=== PATIENT | female | born 1960 | race American Indian/Alaskan Native ===

== ENCOUNTER 2017-08-02 14:27 | Emergency (ER) | payer BC ==
[2017-08-02 14:46] VITALS: BP 153/89; PULSE 58; RESP 18; TEMP 97.8; O2SAT 100
--- NOTE | 2017-08-02 15:01 | ED PDOC ---
Arrival/HPI - General Chief Complaint: Lower Extremity Problem/Injury Time Seen by Provider: 08/02/17 14:40 Historian: Patient, Family - History of Present Illness Narrative History of Present Illness (Text): you were treated in the ED today for 4 days of right lower leg aching and a bruise to the right side of leg but otherwise without any trauma/injury/nausea/ vomiting/headache/dizziness/difficulty breathing/chest pain/abdomen pain/ numbness/tingling/loss of limb function/pain with urination/travel/prior blood clots/prior cancer history/prior hormone navid. Time/Duration: Other (4 days) Symptom Onset: Gradual Symptom Course: Unchanged Quality: Aching Severity Level: 2 Activities at Onset: Rest Context: Sitting Past Medical History - Provider Review Nursing Documentation Reviewed: Yes - Travel History Have you recently traveled outside [place] w/in the past 3 mons?: No - Infectious Disease Hx of Infectious Diseases: None - Reproductive Menopause: Yes (2-3 years ago) - Psychiatric Hx Substance Use: No - Anesthesia Hx Anesthesia: No Family/Social History - Physician Review Nursing Documentation Reviewed: Yes Family/Social History: No Known Family HX Smoking Status: Light Smoker < 10 Cigarettes Daily Hx Alcohol Use: Yes Frequency of alcohol use: Socially Hx Substance Use: No Allergies/Home Meds Allergies/Adverse Reactions: Allergies No Known Allergies Allergy (Verified 08/02/17 14:38) Home Medications: Home Meds Medication Instructions Recorded Confirmed No Known Home Med 08/02/17 08/02/17 Review of Systems - Review of Systems Constitutional: Normal Eyes: Normal ENT: Normal Respiratory: Normal Cardiovascular: Normal Gastrointestinal: Normal Genitourinary Female: Normal Musculoskeletal: Arthralgias Skin: Other (rle bruise) Neurological: Normal Endocrine: Normal Hemo/Lymphatic: Normal Psychiatric: Normal Physical Exam Vital Signs Reviewed: Yes Vital Signs Temp Pulse Resp BP Pulse Ox 08/02/17 14:42 97.8 F 58 L 18 153/89 H 100 Temperature: Afebrile Blood Pressure: Hypertensive Pulse: Regular Respiratory Rate: Normal Appearance: Positive for: Well-Appearing, Non-Toxic, Comfortable Pain Distress: Mild Mental Status: Positive for: Alert and Oriented X 3 - Systems Exam Head: Present: Atraumatic, Normocephalic Pupils: Present: PERRL Extroacular Muscles: Present: EOMI Conjunctiva: Present: Normal Ears: Present: Normal Mouth: Present: Moist Mucous Membranes Pharnyx: Present: Normal Nose (External): Present: Atraumatic Nose (Internal): Present: Normal Inspection Neck: Present: Normal Range of Motion Respiratory/Chest: Present: Clear to Auscultation, Good Air Exchange Cardiovascular: Present: Regular Rate and Rhythm Abdomen: No: Tenderness, Distention, Normal Bowel Sounds, Peritoneal Signs, Rebound, Guarding, McBurney's Point Tender, Rovsing's Sign Present, Hernias, Feeding Tubes, Ostomy Tubes, Mass/Organomegaly, Scars, Other Back: Present: Normal Inspection Upper Extremity: Present: Normal Inspection Lower Extremity: Present: CALF TENDERNESS, NORMAL PULSES, Normal ROM, Tenderness , Neurovascularly Intact, Capillary Refill < 2 s, Other (rle mild calf discomfort with bruise but no swelling vs left and otherwise no bony tenderness , and is warm/sensation/cap refill/dp pulses+) Skin: Present: Warm, Normal Color Psychiatric: Present: Alert, Oriented x 3, Normal Insight, Normal Concentration Medical Decision Making ED Course and Treatment: you were treated in the ED today for 4 days of right lower leg aching and a bruise to the right side of leg but otherwise without any trauma/injury/nausea/ vomiting/headache/dizziness/difficulty breathing/chest pain/abdomen pain/ numbness/tingling/loss of limb function/pain with urination/travel/prior blood clots/prior cancer history/prior hormone navid. You were otherwise breathing easily, pink moist lips, smiling talking with your son, good strength/sensation , alert/oriented, walking easily, clear lungs, no abdomen tenderness, right lower leg mild calf discomfort with bruise but no swelling vs left and otherwise no bony tenderness, and is warm/sensation/pink/pulses+; no fever temp 97.8, stable heart rate 58, stable breathing rate 18, excellent oxygen level 100 % room air, elevated blood pressure 153/89 which we recommend repeat in 2-3 days primary care office to determine further treatment, radiology right lower leg xray initial no sign of acute and ultrasound right lower leg no deep vein clot, tylenol and observation done in the ED with improvement, counselled to rest and thus discharged home with son. 1. Recommend tylenol or motrin as directed for pain. 2. Recommend follow-up primary care 1-2 days to review symptoms, get final xray right leg report and orthopedics referral. 3. If any worsening pain, fever, chills, nausea, vomiting, difficulty breathing, numbness , loss of limb function, pain with urination or any medical condition then return to the ED. 08/02/17 15:03 08/02/17 15:03 08/02/17 15:57 08/02/17 16:00 Reassessment Condition: Improved - RAD Interpretation Radiology Orders: 08/02/17 14:57 DUPLEX LOWER EXTRM VEIN RIGHT [US] Stat 08/02/17 14:59 TIBIA FIBULA RIGHT [RAD] Stat [employer]: Radiologist - Medication Orders Current Medication Orders: Discontinued Medications Acetaminophen (Tylenol 325mg Tab) 975 mg PO STAT STA Stop: 08/02/17 14:59 Last Admin: 08/02/17 15:31 Dose: 975 mg MAR Pain/Vitals Document 08/02/17 15:31 SRE (Rec: 08/02/17 15:31 SRE [id number]) Pain Reassessment Is This A Pain ReAssessment? Yes Sleep Is patient sleeping during reassessment? No Presence of Pain Presence of Pain Yes Pain Scale Used Pain Scale Used Numeric Location Left, Right or Bilateral Right Pain Location Body Site Calf Description Intermittent Disposition/Present on Arrival - Present on Arrival Any Indicators Present on Arrival: Yes History of DVT/PE: No History of Uncontrolled Diabetes: No Urinary Catheter: No History of Decub. Ulcer: No History Surgical Site Infection Following: None - Disposition Have Diagnosis and Disposition been Completed?: Yes Diagnosis: Strain of calf muscle Disposition: HOME/ ROUTINE Disposition Time: 15:59 Patient Plan: Discharge Patient Problems: Current Active Problems Problem Status Onset Strain of calf muscle Acute Condition: IMPROVED Additional Instructions: you were treated in the ED today for 4 days of right lower leg aching and a bruise to the right side of leg but otherwise without any trauma/injury/nausea/ vomiting/headache/dizziness/difficulty breathing/chest pain/abdomen pain/ numbness/tingling/loss of limb function/pain with urination/travel/prior blood clots/prior cancer history/prior hormone navid. You were otherwise breathing easily, pink moist lips, smiling talking with your son, good strength/sensation , alert/oriented, walking easily, clear lungs, no abdomen tenderness, right lower leg mild calf discomfort with bruise but no swelling vs left and otherwise no bony tenderness, and is warm/sensation/pink/pulses+; no fever temp 97.8, stable heart rate 58, stable breathing rate 18, excellent oxygen level 100 % room air, elevated blood pressure 153/89 which we recommend repeat in 2-3 days primary care office to determine further treatment, radiology right lower leg xray initial no sign of acute and ultrasound right lower leg no deep vein clot, tylenol and observation done in the ED with improvement, counselled to rest and thus discharged home with son. 1. Recommend tylenol or motrin as directed for pain. 2. Recommend follow-up primary care 1-2 days to review symptoms, get final xray right leg report and orthopedics referral. 3. If any worsening pain, fever, chills, nausea, vomiting, difficulty breathing, numbness , loss of limb function, pain with urination or any medical condition then return to the ED. Referrals: José Miguel Thurston MD [Primary Care Provider] - Follow up with primary Forms: [employer] (Faro[place])
--- NOTE | 2017-08-02 15:38 | US ---
PROCEDURE: Right lower extremity venous US HISTORY: Leg pain and swelling. Evaluate for DVT. PHYSICIAN(S): Kj Christensen M.D. TECHNIQUE: Duplex sonography and color-flow Doppler with graded compression were used to evaluate the deep venous system of the right lower extremity. FINDINGS: The visualized deep venous system of the right lower extremity is sonographically normal and compressible. Normal waveforms and augmentation are seen. There is no sonographic evidence for deep venous thrombosis in the visualized segments of the right lower extremity. IMPRESSION: 1. No sonographic evidence for deep venous thrombosis in the visualized segments of the right lower extremity.
--- NOTE | 2017-08-02 16:32 | RAD ---
PROCEDURE: Radiographs of the right tibia and fibula. HISTORY: 57yoF, right lower leg pain COMPARISON: None available. TECHNIQUE: Frontal and lateral views obtained. FINDINGS: BONES: No fracture or destructive lesion. JOINT SPACES: Unremarkable. OTHER FINDINGS: None. IMPRESSION: Unremarkable radiographs of the right tibia and fibula.
== END 2017-08-02 16:12 | disposition home or self-care (01) ==
LOC: ED 14:27
DX: S86.911A Strain of unspecified muscle(s) and tendon(s) at lower leg level, right leg, initial encounter (principal); X58.XXXA Exposure to other specified factors, initial encounter; Y92.9 Unspecified place or not applicable

== ENCOUNTER 2017-09-14 17:01 | Inpatient (IN) | payer BC ==
--- NOTE | 2017-09-14 17:48 | ED PDOC ---
Arrival/HPI - General Chief Complaint: Chest Pain Time Seen by Provider: 09/14/17 17:15 Historian: Patient - History of Present Illness Narrative History of Present Illness (Text): 09/14/17 17:48 A 57 year old female presents to the emergency department complaining of left chest pain since earlier today. Patient reports worsening pain with movement. She notes taking Tylenol, with mild relief. Patient denies any injury, fever, chills, nausea, vomiting, abdominal pain, shortness of breath, leg pain or any other complaints. No recent travel. Time/Duration: Other (earlier today) Symptom Course: Unchanged Quality: Other Context: Home Past Medical History - Provider Review Nursing Documentation Reviewed: Yes - Infectious Disease Hx of Infectious Diseases: None - Reproductive Menopause: Yes - Cardiac Hx Cardiac Disorders: No - Pulmonary Hx Respiratory Disorders: No - Neurological Hx Neurological Disorder: No - HEENT Hx HEENT Disorder: No - Renal Hx Renal Disorder: No - Endocrine/Metabolic Hx Endocrine Disorders: No - Hematological/Oncological Hx Blood Disorders: No - Integumentary Hx Dermatological Disorder: No - Musculoskeletal/Rheumatological Hx Musculoskeletal Disorders: No - Gastrointestinal Hx Gastrointestinal Disorders: No - Genitourinary/Gynecological Hx Genitourinary Disorders: No - Psychiatric Hx Psychophysiologic Disorder: No Hx Substance Use: No - Anesthesia Hx Anesthesia: No Family/Social History - Physician Review Nursing Documentation Reviewed: Yes Family/Social History: CAD/OH Smoking Status: Light Smoker < 10 Cigarettes Daily Hx Alcohol Use: Yes Frequency of alcohol use: Few days per week Hx Substance Use: No Allergies/Home Meds Allergies/Adverse Reactions: Allergies No Known Allergies Allergy (Verified 09/14/17 17:13) Review of Systems - Physician Review All systems were reviewed & negative as marked: Yes - Review of Systems Constitutional: absent: Fevers, Night Sweats Respiratory: absent: SOB Cardiovascular: Chest Pain (left sided). absent: Calf Pain Gastrointestinal: absent: Abdominal Pain, Nausea, Vomiting Physical Exam Vital Signs Reviewed: Yes Vital Signs Temp Pulse Pulse Resp BP BP Pulse Ox 09/15/17 00:50 74 18 135/81 99 09/14/17 23:24 76 18 146/87 97 09/14/17 17:22 87 178/93 H 09/14/17 17:07 98.6 F 90 18 170/96 H 100 Temperature: Afebrile Blood Pressure: Hypertensive Pulse: Regular Respiratory Rate: Normal Appearance: Positive for: Well-Appearing, Non-Toxic, Comfortable Pain Distress: None Mental Status: Positive for: Alert and Oriented X 3 - Systems Exam Head: Present: Atraumatic, Normocephalic Pupils: Present: PERRL Extroacular Muscles: Present: EOMI Conjunctiva: Present: Normal Mouth: Present: Moist Mucous Membranes Respiratory/Chest: Present: Clear to Auscultation, Good Air Exchange. No: Respiratory Distress, Accessory Muscle Use, Tender to Palpation Cardiovascular: Present: Regular Rate and Rhythm, Normal S1, S2. No: Murmurs Abdomen: Present: Normal Bowel Sounds. No: Tenderness, Distention, Peritoneal Signs Upper Extremity: Present: Normal Inspection. No: Cyanosis, Edema Lower Extremity: Present: Normal Inspection. No: Edema Neurological: Present: GCS=15, CN II-XII Intact, Speech Normal Skin: Present: Warm, Dry, Normal Color. No: Rashes Psychiatric: Present: Alert, Oriented x 3, Normal Insight, Normal Concentration Medical Decision Making ED Course and Treatment: 09/14/17 17:48 Impression: A 57 year old female with left chest pain Plan: -- Chest xray -- Labs -- Toradol -- Reassess and disposition Progress Notes: EKG shows NSR at [address]-segment elevations, normal intervals. Interpreted by me. pt shows hgb 6.8 so pt likely had chest pain due to symptomatic anemia pt consented for blood transfusion. explained risks/benefits. 09/14/17 21:45 Dr. Bertrand lam, awaiting call back. 09/14/17 21:[address] Thurston 09/14/17 22:35 Patient was informed of diagnosis and admission, patient agrees with plan. 09/18/17 22:53 - Lab Interpretations Lab Results: 09/14/17 21:00 09/14/17 18:30 Lab Results 09/14/17 21:00: Retic Count 1.14 09/14/17 21:00: WBC 6.4, RBC 3.93, Hgb 6.7 L*, Hct 26.1 L, MCV 66.4 L, MCH 17.0 L, MCHC 25.7 L, RDW 20.7 H, Plt Count 130, Gran % 50.7, Lymph % (Auto) 29.1, [place] % (Auto) 7.1 H, Eos % (Auto) 12.0 H, Baso % (Auto) 1.1, Gran # 3.22, Lymph # (Auto) 1.9, [place]lee # (Auto) 0.5, Eos # (Auto) 0.8 H, Baso # (Auto) 0.07 09/14/17 18:30: Hemoglobin A 97.3, Hemoglobin A2 1.7 L, Hemoglobin C 0.0, Hemoglobin F () <1.0, Hemoglobin S 0.0, Variant Hemoglobin 0.0, Hemoglobinopathy Red Blood Count 3.88, Hemoglobinopathy Hct 24.2 L, Hemoglobinopathy Hgb 7.1 L, Hemoglobinopathy MCV 62.5 L, Hemoglobinopathy MCH 18.2 L, Hemoglobinopathy RDW 22.9 H, Hemoglobinopathy Interp See note 09/14/17 18:30: Sodium 142, Potassium 3.9, Chloride 107, Carbon Dioxide 25, Anion Gap 14, BUN 15, Creatinine 0.9, Est GFR ( Amer) > 60, Est GFR (Non- Af Amer) > 60, Random Glucose 96, Calcium 10.3, Total Bilirubin 0.2, AST 21, ALT 20, Alkaline Phosphatase 103, Troponin I < 0.01, Total Protein 8.3, Albumin 4.3, Globulin 4.0, Albumin/Globulin Ratio 1.1 09/14/17 18:30: WBC 6.0, RBC 3.90, Hgb 6.9 L*, Hct 26.1 L, MCV 66.9 L, MCH 17.7 L, MCHC 26.4 L, RDW 20.9 H, Plt Count 117 L, Gran % 54.8, Lymph % (Auto) 26.4, [place]lee % (Auto) 5.5, Eos % (Auto) 12.1 H, Baso % (Auto) 1.2, Gran # 3.30, Lymph # (Auto) 1.6, [place]lee # (Auto) 0.3, Eos # (Auto) 0.7, Baso # (Auto) 0.07 I have reviewed the lab results: Yes - RAD Interpretation Radiology Orders: 09/14/17 18:08 CHEST TWO VIEWS (PA/LAT) [RAD] Stat - Medication Orders Current Medication Orders: Discontinued Medications Arformoterol Tartrate (Brovana) 15 mcg IH [id number] [facility] Last Admin: 09/16/17 07:27 Dose: 15 mcg Chlordiazepoxide (Librium) 25 mg PO Q8 PRN; Protocol PRN Reason: Symptoms of alcohol withdrawl Folic Acid (Folic Acid) 1 mg PO DAILY [facility] Last Admin: 09/16/17 10:27 Dose: 1 mg Dextrose/Sodium Chloride (Dextrose 5%/0.45% Ns 1000 Ml) 1,000 mls @ 60 mls/hr IV .[id number] [facility] Last Admin: 09/16/17 10:27 Dose: Iron Sucrose 200 mg/ Sodium (Chloride) 110 mls @ 110 mls/hr IVPB DAILY [facility] Stop: 09/19/17 10:59 Last Admin: 09/16/17 10:31 Dose: 110 mls/hr eMAR Start Stop Document 09/16/17 10:31 DH (Rec: 09/16/17 10:31 [id number]) Intravenous Solution Start Date 09/16/17 Start Time 10:31 End Date 09/16/17 End time 11:31 Total Infusion Time 60 Sodium Chloride (Sodium Chloride 0.9%) 1,000 mls @ 75 mls/hr IV .[id number] [facility] Stop: 09/16/17 10:31 Last Admin: 09/16/17 10:32 Dose: 75 mls/hr eMAR Start Stop Document 09/16/17 10:32 DH (Rec: 09/16/17 10:32 [id number]) Intravenous Solution Start Date 09/16/17 Start Time 10:32 Ketorolac Tromethamine (Toradol) 30 mg IV ONCE ONE Stop: 09/14/17 18:13 Last Admin: 09/14/17 18:36 Dose: 30 mg eMAR Start Stop Document 09/14/17 18:36 CHARLIE (Rec: 09/14/17 18:36 CHARLIE [id number]) Intravenous Solution Start Date 09/14/17 Start Time 18:36 End Date 09/14/17 End time 18:38 Total Infusion Time 2 MAR Pain Assessment Document 09/14/17 18:36 CHARLIE (Rec: 09/14/17 18:36 CHARLIE [id number]) Pain Reassessment Is this a pain reassessment? Yes Location Left, Right or Bilateral Left Pain Location Body Site Chest Description Intensity of Pain at present 4 Levalbuterol HCl (Xopenex) 0.63 mg IH [id number] PRN PRN Reason: SOB Last Admin: 09/16/17 07:27 Dose: 0.63 mg Losartan Potassium (Cozaar) 50 mg PO DAILY [facility] Last Admin: 09/15/17 09:10 Dose: 50 mg MAR Pulse and Blood Pressure Document 09/15/17 09:10 (Rec: 09/15/17 09:10 [place] [id number]) Pulse Pulse Rate (60-90) 70 Blood Pressure Blood Pressure (100/60-150/90) 159/90 Losartan Potassium (Cozaar) 100 mg PO DAILY [facility] Last Admin: 09/16/17 10:28 Dose: 100 mg Metoprolol Tartrate (Lopressor) 25 mg PO BID [facility] Last Admin: 09/16/17 10:28 Dose: 25 mg MAR Pulse and Blood Pressure Document 09/16/17 10:28 (Rec: 09/16/17 10:29 [place] [id number]) Pulse Pulse Rate (60-90) 71 Blood Pressure Blood Pressure (100/60-150/90) 156/82 Nicotine (Nicoderm Cq) 1 patch TD DAILY [facility] Last Admin: 09/16/17 10:29 Dose: 1 patch MAR Transdermal Patch Site Document 09/16/17 10:29 (Rec: 09/16/17 10:29 [place] [id number]) Transdermal Patch Site Transdermal Patch Site Right Lower Abdomen Pantoprazole Sodium (Protonix Inj) 40 mg IVP Q12 [facility] Last Admin: 09/16/17 10:29 Dose: 40 mg IVP Administration Document 09/16/17 10:29 (Rec: 09/16/17 10:29 [place] [id number]) Charges for Administration # of IVP Administrations 1 Potassium Chloride (K-Dur 20 Meq Er Tab) 20 meq PO BRK [facility] Stop: 09/19/17 08:01 Last Admin: 09/16/17 10:25 Dose: 20 meq Thiamine HCl (Vitamin B1 Inj) 100 mg IV DAILY [facility] Last Admin: 09/16/17 10:29 Dose: 100 mg eMAR Start Stop Document 09/16/17 10:29 (Rec: 09/16/17 10:29 [place] [id number]) Intravenous Solution Start Date 09/16/17 Start Time 10:29 - Scribe Statement The provider has reviewed the documentation as recorded by the Siddhartha Norman Provider Scribe Attestation: All medical record entries made by the Siddhartha were at my direction and personally dictated by me. I have reviewed the chart and agree that the record accurately reflects my personal performance of the history, physical exam, medical decision making, and the department course for this patient. I have also personally directed, reviewed, and agree with the discharge instructions and disposition. Disposition/Present on Arrival - Present on Arrival Any Indicators Present on Arrival: No History of DVT/PE: No History of Uncontrolled Diabetes: No Urinary Catheter: No History of Decub. Ulcer: No History Surgical Site Infection Following: None - Disposition Have Diagnosis and Disposition been Completed?: Yes Diagnosis: Anemia Disposition: HOSPITALIZED Disposition Time: 19:00 Patient Plan: Admission Condition: STABLE
[2017-09-14 20:08] LABS: BASO # 0.07 K/mm3 (0.0-2.0); BASO % 1.2 % (0.0-3.0); EOS # 0.7 (0.0-0.7); EOS % 12.1 % (1.5-5.0); GRAN % 54.8 % (50.0-68.0); LYMPH # 1.6 (1.2-3.4); LYMPH % 26.4 % (22.0-35.0); MEAN CELL VOLUME 66.9 fl (80.0-105.0); MEAN CORPUSCULAR HEMOGLOBIN 17.7 pg (25.0-35.0); MEAN CORPUSCULAR HGB CONC 26.4 g/dl (31.0-37.0); MONO # 0.3 (0.1-0.6); MONO % 5.5 % (1.0-6.0); RED CELL DISTRIBUTION WIDTH 20.9 % (11.5-14.5)
[2017-09-14 20:10] LABS: ALB/GLOB RATIO 1.1 (1.1-1.8); ALBUMIN 4.3 g/dL (3.0-4.8); ALT/SGPT 20 U/L (7-56); AST/SGOT 21 U/L (14-36); BLOOD UREA NITROGEN 15 mg/dL (7-21); CALCIUM 10.3 mg/dL (8.4-10.5); GFR AFRICAN-AMERICAN > 60; GFR NON-AFRICAN AMERICAN > 60
[2017-09-14 20:11] LABS: HEMOGLOBIN 6.9 g/dL (12.0-16.0)
[2017-09-14 20:21] LABS: TROPONIN I < 0.01 ng/mL
[2017-09-14 21:01] LABS: PLATELET COUNT 117 10^3/uL (120.0-450.0)
[2017-09-14 22:23] LABS: BASO % 1.1 % (0.0-3.0); EOS # 0.8 (0.0-0.7); GRAN # 3.22 (1.4-6.5); GRAN % 50.7 % (50.0-68.0); LYMPH # 1.9 (1.2-3.4); LYMPH % 29.1 % (22.0-35.0); MEAN CELL VOLUME 66.4 fl (80.0-105.0); MEAN CORPUSCULAR HGB CONC 25.7 g/dl (31.0-37.0); MONO # 0.5 (0.1-0.6); MONO % 7.1 % (1.0-6.0); PLATELET COUNT 130 10^3/uL (120.0-450.0); RBC 3.93 10^6/uL (3.5-6.1); RED CELL DISTRIBUTION WIDTH 20.7 % (11.5-14.5); WHITE BLOOD COUNT 6.4 10^3/ul (4.5-11.0)
[2017-09-14 22:24] LABS: BASO # 0.07 K/mm3 (0.0-2.0)
[2017-09-14 22:51] LABS: HEMOGLOBIN 6.7 g/dL (12.0-16.0)
--- NOTE | 2017-09-15 00:28 | CP.PCM.HP ---
<Kurtis Hay - Last Filed: 09/15/17 00:23> History of Present Illness - History of Present Illness History of Present Illness: Kurtis Satnam PGY1 H&P note for Dr. Thurston Service cc: chest tightness Ms. Mcgregor is a 57yo postmenopausal AAF with no significant PMH who presented for chest tightness x2 days. she denies shortness of breath, nausea/vomiting, diaphoresis. she states that the tightness feels like a muscle spasm to her and is not associated with exertion, and is constant, but non-radiating. she states that she has never been told she's anemic, and denies any vomiting or bloody/ dark stools. she does state that she used to have heavy periods but has not had one in years and denies any vaginal bleeding. she also states that she has had hemorrhoids in the past, but has not had active bleeding. she denies any shortness of breath, weakness, weight loss. she has never had a blood transfusion before. 12-pt ROS was reviewed and is otherwise unremarkable. PMD: Dr. Thurston PMH: hermorrhoids PSH: none Meds: none NKDA SHx: +tobacco (1pk/d for many years), occasional ETOH, denies drug use, works as a teacher Present on Admission - Present on Admission Any Indicators Present on Admission: No Review of Systems - Review of Systems All systems: reviewed and no additional remarkable complaints except (as per HPI ) Past Patient History - Infectious Disease Hx of Infectious Diseases: None - Past Medical History & Family History Past Medical History?: Yes Past Family History: Reviewed and not pertinent - Past Social History Smoking Status: Heavy Smoker > 10 Cigarettes Daily Alcohol: Occasional Drugs: Denies Home Situation {Lives}: With Family - CARDIAC Hx Cardiac Disorders: No - PULMONARY Hx Respiratory Disorders: No - NEUROLOGICAL Hx Neurological Disorder: No - HEENT Hx HEENT Problems: No - RENAL Hx Chronic Kidney Disease: No - ENDOCRINE/METABOLIC Hx Endocrine Disorders: No - HEMATOLOGICAL/ONCOLOGICAL Hx Blood Disorders: No - INTEGUMENTARY Hx Dermatological Problems: No - MUSCULOSKELETAL/RHEUMATOLOGICAL Hx Musculoskeletal Disorders: No - GASTROINTESTINAL Hx Hemorrhoids: Yes - GENITOURINARY/GYNECOLOGICAL Hx Genitourinary Disorders: No - PSYCHIATRIC Hx Psychophysiologic Disorder: No Hx Substance Use: No - SURGICAL HISTORY Hx Surgeries: No - ANESTHESIA Hx Anesthesia: No Meds Allergies/Adverse Reactions: Allergies Allergy/AdvReac Type Severity Reaction Status Date / Time No Known Allergies Allergy Verified 09/14/17 17:13 Physical Exam - Constitutional Appears: Well, Non-toxic, No Acute Distress - Head Exam Head Exam: ATRAUMATIC, NORMAL INSPECTION - Eye Exam Eye Exam: EOMI, PERRL Additional comments: pale conjunctiva - ENT Exam ENT Exam: Mucous Membranes Moist - Neck Exam Neck exam: Positive for: Normal Inspection - Respiratory Exam Respiratory Exam: NORMAL BREATHING PATTERN. absent: Rales, Rhonchi, Wheezes, Respiratory Distress - Cardiovascular Exam Cardiovascular Exam: RRR, +S1, +S2 - GI/Abdominal Exam GI & Abdominal Exam: Normal Bowel Sounds, Soft. absent: Distended, Tenderness - Extremities Exam Extremities exam: Positive for: normal inspection. Negative for: pedal edema - Back Exam Back exam: NORMAL INSPECTION - Neurological Exam Neurological exam: Alert, CN II-XII Intact, Oriented x3 - Psychiatric Exam Psychiatric exam: Normal Affect, Normal Mood - Skin Skin Exam: Normal Color, Warm Results - Vital Signs Recent Vital Signs: Last Vital Signs Temp 98.6 F 09/14/17 17:07 Pulse 76 09/14/17 23:24 Resp 18 09/14/17 23:24 BP 146/87 09/14/17 23:24 Pulse Ox 97 09/14/17 23:24 - Labs Result Diagrams: 09/14/17 21:00 09/14/17 18:30 Assessment & Plan - Assessment and Plan (Free Text) Assessment: 57yo postmenopausal AAF with no significant PMH who presented for chest tightness, found to have anemia w/ Hgb 6.9. She is being admitted for anemia to rule out acute causes and will receive blood transfusions. Plan: 1. chest pain, found to be w/ microcytic anemia - type and cross - transfuse 2u pRBC STAT - pending labwork before transfusion: Iron panel, TIBC, ferritin, retic count, vitamin B12, folate, mag/phos, pt/ptt, erythropoeitin, hgb electropharesis - stool occult blood test - trending trops to r/o ACS - GI consulted, recs appreciated - Cardio consulted, recs appreciated - Heme consulted, recs appreciated - CXR reviewed and is unremarkable - labs reviewed and are unremarkable except for the microcytic anemia - EKG was NSR w/ possible PAC's - monitor for any bleeding - monitor morning labs and H/H - Chest, abdomen, pelvis CT ordered - morning EKG ordered - Liquid diet - D5W @ 60 ordered 2. HTN - Lopressor and Cozaar ordered 3. Hx Tobacco use - nicotine patch ordered PTX and SCDs ordered for GI/DVT ppx Patient was seen and examined, and discussed with attending Dr. Bertrand Hay PGY1 <José Miguel Thurston U - Last Filed: 09/15/17 22:37> Results - Vital Signs Recent Vital Signs: Last Vital Signs Temp 98.1 F 09/15/17 18:00 Pulse 72 09/15/17 18:00 Resp 18 09/15/17 18:00 BP 156/105 H 09/15/17 18:00 Pulse Ox 100 09/15/17 06:00 - Labs Result Diagrams: 09/15/17 08:00 09/15/17 03:35 Labs: Laboratory Results - last 24 hr 09/14/17 09/14/17 09/14/17 23:58 23:58 23:58 WBC RBC Hgb Hct MCV MCH MCHC RDW Plt Count Manual Plt Count PT INR APTT Sodium Potassium Chloride Carbon Dioxide Anion Gap BUN Creatinine Est GFR ( Amer) Est GFR (Non-Af Amer) Random Glucose Calcium Phosphorus 4.0 Magnesium 2.2 Iron 19 L TIBC 462 % Saturation 4 L Transferrin 393.37 H Ferritin 5.5 Total Bilirubin Direct Bilirubin AST ALT Alkaline Phosphatase Lactate Dehydrogenase 389 Total Creatine Kinase 60 Troponin I < 0.01 Total Protein Albumin Globulin Albumin/Globulin Ratio Triglycerides Cholesterol LDL Cholesterol Direct HDL Cholesterol Vitamin B12 355 25-OH Vitamin D Total Folate 6.3 Free T4 Thyroxine (T4) TSH 3rd Generation Hepatitis A IgM Ab Hep Bs Antigen Hep B Core IgM Ab Hepatitis C Antibody Blood Type Blood Type Confirm Antibody Screen Crossmatch BBK History Checked 09/14/17 09/14/17 09/14/17 23:58 23:58 23:58 WBC RBC Hgb Hct MCV MCH MCHC RDW Plt Count Manual Plt Count PT INR APTT Sodium Potassium Chloride Carbon Dioxide Anion Gap BUN Creatinine Est GFR ( Amer) Est GFR (Non-Af Amer) Random Glucose Calcium Phosphorus Magnesium Iron TIBC % Saturation Transferrin Ferritin Total Bilirubin Direct Bilirubin AST ALT Alkaline Phosphatase Lactate Dehydrogenase Total Creatine Kinase Troponin I Total Protein Albumin Globulin Albumin/Globulin Ratio Triglycerides Cholesterol LDL Cholesterol Direct HDL Cholesterol Vitamin B12 25-OH Vitamin D Total < 12.8 L Folate Free T4 1.12 Thyroxine (T4) 6.9 TSH 3rd Generation 3.73 Hepatitis A IgM Ab Hep Bs Antigen Hep B Core IgM Ab Hepatitis C Antibody Blood Type O POSITIVE Blood Type Confirm Antibody Screen Negative Crossmatch See Detail BBK History Checked No verified bt 09/15/17 09/15/17 09/15/17 01:35 01:35 03:35 WBC RBC Hgb Hct MCV MCH MCHC RDW Plt Count Manual Plt Count PT 11.9 INR 1.04 APTT 25.4 Sodium 140 Potassium 3.6 Chloride 108 H Carbon Dioxide 24 Anion Gap 11 BUN 13 Creatinine 0.7 Est GFR ( Amer) > 60 Est GFR (Non-Af Amer) > 60 Random Glucose 117 H Calcium 9.3 Phosphorus Magnesium 2.2 Iron TIBC % Saturation Transferrin Ferritin Total Bilirubin 0.2 Direct Bilirubin 0.2 AST 26 ALT 23 Alkaline Phosphatase 76 Lactate Dehydrogenase 366 Total Creatine Kinase 61 Troponin I < 0.01 Total Protein 7.2 Albumin 3.8 Globulin 3.5 Albumin/Globulin Ratio 1.1 Triglycerides 141 Cholesterol 149 LDL Cholesterol Direct 101 HDL Cholesterol 32 Vitamin B12 25-OH Vitamin D Total Folate Free T4 Thyroxine (T4) TSH 3rd Generation Hepatitis A IgM Ab Hep Bs Antigen Hep B Core IgM Ab Hepatitis C Antibody Blood Type Blood Type Confirm O POSITIVE Antibody Screen Crossmatch BBK History Checked 09/15/17 09/15/17 09/15/17 08:00 08:45 08:45 WBC 5.4 RBC 4.11 Hgb 7.8 L Hct 28.6 L MCV 69.6 L D MCH 19.0 L MCHC 27.3 L RDW 22.3 H Plt Count 97 L Manual Plt Count PT 12.4 INR 1.08 APTT Sodium Potassium Chloride Carbon Dioxide Anion Gap BUN Creatinine Est GFR ( Amer) Est GFR (Non-Af Amer) Random Glucose Calcium Phosphorus Magnesium Iron TIBC % Saturation Transferrin Ferritin Total Bilirubin Direct Bilirubin AST ALT Alkaline Phosphatase Lactate Dehydrogenase 381 Total Creatine Kinase 79 Troponin I < 0.01 Total Protein Albumin Globulin Albumin/Globulin Ratio Triglycerides Cholesterol LDL Cholesterol Direct HDL Cholesterol Vitamin B12 25-OH Vitamin D Total Folate Free T4 Thyroxine (T4) TSH 3rd Generation Hepatitis A IgM Ab Hep Bs Antigen Hep B Core IgM Ab Hepatitis C Antibody Blood Type Blood Type Confirm Antibody Screen Crossmatch BBK History Checked 09/15/17 09/15/17 08:45 10:30 WBC RBC Hgb Hct MCV MCH MCHC RDW Plt Count Manual Plt Count 120 PT INR APTT Sodium Potassium Chloride Carbon Dioxide Anion Gap BUN Creatinine Est GFR ( Amer) Est GFR (Non-Af Amer) Random Glucose Calcium Phosphorus Magnesium Iron TIBC % Saturation Transferrin Ferritin Total Bilirubin Direct Bilirubin AST ALT Alkaline Phosphatase Lactate Dehydrogenase Total Creatine Kinase Troponin I Total Protein Albumin Globulin Albumin/Globulin Ratio Triglycerides Cholesterol LDL Cholesterol Direct HDL Cholesterol Vitamin B12 25-OH Vitamin D Total Folate Free T4 Thyroxine (T4) TSH 3rd Generation Hepatitis A IgM Ab Negative Hep Bs Antigen Negative Hep B Core IgM Ab Negative Hepatitis C Antibody Negative Blood Type Blood Type Confirm Antibody Screen Crossmatch BBK History Checked Assessment & Plan - Assessment and Plan (Free Text) Assessment: ASSESSMENT & PLAN: 1. Severe symptomatic anemia with symptoms of chest pain and arm pain. 2. Hypertension. 3. Alcohol and nicotine dependence and possible addiction. 4. Hypertension. 5. Microcytic anemia with thrombocytopenia and normal reticulocyte count. 6. Relative hypokalemia. 7. Iron deficiency. 8. Borderline hypercholesterolemia with elevated LDL and decreased HDL. 9. Questionable history of hemorrhoids. 10. Hypertensive cardiovascular disease with left ventricular hypertrophy pattern on EKG. PLAN: PER CPOE ORDERS DICTATED AND ELECTRONICALLY SIGNED NOT READ.
[2017-09-15 01:20] LABS: IRON 19 ug/dL (45-180)
[2017-09-15 01:30] LABS: % IRON SATURATION 4 % (20-55); TOTAL IRON BINDING CAPACITY 462 ug/dL (265-497)
[2017-09-15 01:52] LABS: TROPONIN I < 0.01 ng/mL
[2017-09-15 01:57] LABS: FREE T4 1.12 ng/dL (0.78-2.19); T4 6.9 ug/dL (5.5-11.0)
[2017-09-15] MEDS: Dextrose 5%/0.45% NS 1,000 ML IV SCH ×3 (01:59→22:28)
[2017-09-15 03:34] LABS: INR 1.04 (0.93-1.08); PARTIAL THROMBOPLASTIN TIME 25.4 Seconds (25.1-36.5); PROTHROMBIN TIME 11.9 SECONDS (9.4-12.5)
[2017-09-15 04:07] LABS: LDL CHOLESTEROL 101 mg/dL (0-129); TROPONIN I < 0.01 ng/mL
[2017-09-15 04:44] LABS: ALB/GLOB RATIO 1.1 (1.1-1.8); ALBUMIN 3.8 g/dL (3.0-4.8); AST/SGOT 26 U/L (14-36); BILIRUBIN,DIRECT 0.2 mg/dL (0.0-0.4); BLOOD UREA NITROGEN 13 mg/dL (7-21); CALCIUM 9.3 mg/dL (8.4-10.5); GFR AFRICAN-AMERICAN > 60; GFR NON-AFRICAN AMERICAN > 60; HDL CHOLESTEROL 32 mg/dL (29-60)
[2017-09-15 05:03] LABS: ALT/SGPT 23 U/L (7-56)
[2017-09-15] MEDS ORDERED: Barium Sulfate Susp 2.1% w/v, 2.0% w/w 450 mL Bottle PO ONE (08:28)
--- NOTE | 2017-09-15 08:38 | RAD ---
HISTORY: chest pain COMPARISON: No prior. TECHNIQUE: Chest PA and lateral FINDINGS: LUNGS: No active pulmonary disease. PLEURA: No significant pleural effusion identified. No pneumothorax apparent. CARDIOVASCULAR: Normal. OSSEOUS STRUCTURES: No significant abnormalities. VISUALIZED UPPER ABDOMEN: Normal. OTHER FINDINGS: None. IMPRESSION: No active disease.
[2017-09-15] MEDS: Potassium Chloride 20 mEq ER Tab PO SCH (09:09)
[2017-09-15 09:10] LABS: INR 1.08 (0.93-1.08); PROTHROMBIN TIME 12.4 SECONDS (9.4-12.5)
[2017-09-15 09:25] LABS: TROPONIN I < 0.01 ng/mL
[2017-09-15 10:49] LABS: HEMOGLOBIN 7.8 g/dL (12.0-16.0); MEAN CELL VOLUME 69.6 fl (80.0-105.0); MEAN CORPUSCULAR HGB CONC 27.3 g/dl (31.0-37.0); PLATELET COUNT 97 10^3/uL (120.0-450.0); RBC 4.11 10^6/uL (3.5-6.1); RED CELL DISTRIBUTION WIDTH 22.3 % (11.5-14.5); WHITE BLOOD COUNT 5.4 10^3/ul (4.5-11.0)
[2017-09-15] MEDS ORDERED: Levalbuterol 0.63 MG/3 ML Inhal Soln UD IH PRN (10:52)
--- NOTE | 2017-09-15 11:17 | CARD ---
APPROVED REPORT EKG Measurement Heart [id number] <Conclusion> Sinus rhythm with premature atrial complex Otherwise normal ECG
[2017-09-15] MEDS: Arformoterol 15 mcg/2 ml Inh Sol IH SCH ×2 (11:30→19:43)
--- NOTE | 2017-09-15 11:39 | CARD ---
APPROVED REPORT EKG Measurement Heart [id number] MA [id number] <Conclusion> Normal sinus rhythm PRWP, probably lead positioning LVH by voltage No change
[2017-09-15 13:18] LABS: HEPATITIS B SURFACE AG Negative (NEGATIVE)
[2017-09-15 13:23] LABS: FERRITIN 5.5 ng/mL
[2017-09-15 13:24] LABS: HEPATITIS A IGM NEGATIVE (NEGATIVE); HEPATITIS B CORE AB NEGATIVE (NEGATIVE)
[2017-09-15] MEDS ORDERED: Iohexol 350 MG/100 ML VIAL ONE (13:29)
--- NOTE | 2017-09-15 13:32 | PN ---
DATE: 09/15/2017 SUBJECTIVE: The patient is seen in room 261, bed 1. The patient is lying in the bed. The patient denies any shortness of breath or chest pain or shoulder pain or arm pain at this time. The patient is lying comfortably in the bed. Overnight nurse's notes were reviewed. The patient only received 1 unit of PRBC despite the patient is ordered for transfusion of 2 units of PRBC was entered initially by the ER physician by the medical records almost 12 hours ago and the patient only received 1 unit of PRBC. The patient also did not undergo CAT scan of the chest, abdomen and pelvis which was ordered almost 12 hours ago. PHYSICAL EXAMINATION: VITAL SIGNS: T-max 98.7. Telemetry shows heart rate 70-71; blood pressure is 150/95, 155/94, 145/84; respiration 22; O2 sat is 97-100%. HEENT: Head examination normocephalic, atraumatic. HEENT examination shows pinkish pale conjunctivae. Anicteric sclerae. No oropharyngeal lesion. NECK: No neck rigidity. CHEST: Kyphosis. LUNGS: Shows no rales, crackles or wheezing. CARDIOVASCULAR: S1, S2. Regular rhythm. Questionable soft systolic murmur, left sternal border, right second intercostal space. ABDOMEN: Soft. Mild epigastric tenderness. No guarding. No rigidity. No rebound tenderness. GENITALIA: Female. No costovertebral angle tenderness. EXTREMITY: Shows no pitting edema, no calf tenderness, no Homans' sign. MUSCULOSKELETAL: Examination shows a decreased body mass index of 20. NEUROLOGIC: The patient is alert, awake, responsive. The patient is able to move upper and lower extremities without assistance. Gait examination not tested. DIAGNOSTICS: On , WBC 5.4, hemoglobin and hematocrit 7.8 and 28.6, MCV 69, platelets of 97,000 which is low. PT/PTT is normal 11.9 and 25.4. Sodium 140, potassium 3.6, chloride 108, CO2 of 24 and anion gap 11, BUN 13, creatinine 0.7, GFR greater than 60, glucose 117, calcium 9.3, magnesium 2.2, iron 19, TIBC 462, saturation 4. LFTs are normal. Troponin is negative. Cholesterol 149, LDL 101, HDL 32, TSH 3.7, T4 is 6.9. Blood bank summary: The patient is typed and crossmatch for 4 units. The patient has only received 1 unit since almost 12 hours since admitted. Chest x-ray, EKG reviewed. CT scan is pending. Echo results are still pending, not done yet. IMPRESSION AND PLAN: 1. Severe symptomatic anemia with symptoms of chest pain and arm pain. 2. Hypertension. 3. Alcohol and nicotine dependence and possible addiction. 4. Hypertension. 5. Microcytic anemia with thrombocytopenia and normal reticulocyte count. 6. Relative hypokalemia. 7. Iron deficiency. 8. Borderline hypercholesterolemia with elevated LDL and decreased HDL. 9. Questionable history of hemorrhoids. 10. Hypertensive cardiovascular disease with left ventricular hypertrophy pattern on EKG. Plan at this time, ferritin results pending. Hepatitis serologies are pending. B12, cardiac enzymes, repeat CMP, LFTs, magnesium, vitamin D, erythropoietin, hemoglobin electrophoresis, HIV, sickle cell, manual platelets, CBC manual platelet ordered, which are pending. CONSULTATION: 1. Cardiology. 2. Gastroenterology. 3. Hematology/Oncology. CURRENT MEDICATIONS: Brovana 15 mcg q. 12 hours, Cozaar 50 mg daily, D5 half normal saline at 60 mL an hour, folic acid 1 mg daily, Venofer 200 mg IV daily, K-Dur 20 mEq daily for five doses, Librium 25 mg p.o. q. 8 p.r.n., Lopressor 25 mg twice a day, nicotine patch 14 mg daily, Protonix 40 IV q. 12, thiamine 100 mg IV daily, Xopenex nebulizer 0.63 mg q. 6 hours p.r.n. Transvaginal pelvic ultrasound ordered. CAT scan of the chest, abdomen and pelvis ordered. Oxygen 2 L continuous and repeat EKG, echo with Doppler ordered. The patient is on liquid diet, out of bed to chair, JARRETT stockings, SCDs. DVT, GI prophylaxis ordered. The patient updated about her condition, diagnosis, treatment plan, management plan, need for further diagnostic therapeutic intervention discussed and explained to the patient at length. All questions concerned answered, which she acknowledged and understood. Dictated and electronically signed, not read. José Miguel Thurston MD [facility] # [id number]
[2017-09-15 13:35] LABS: HEPATITIS C ANTIBODY NEGATIVE (NEGATIVE)
[2017-09-15 13:54] LABS: FOLATE 6.3 ng/mL
--- NOTE | 2017-09-15 14:09 | CON ---
DATE: 09/15/2017 GASTROENTEROLOGY CONSULTATION REQUESTING PHYSICIAN: José Miguel Thurston MD REASON FOR CONSULTATION: I have been asked to see this 57-year-old -[place] female who comes to the hospital with 2 days of chest pain who on routine blood work was found to be profoundly anemic with a hemoglobin of 6.7. The patient states that she has not had any blood work in several years nor as she had any medical follow-up. Patient admits to occasional rectal bleeding with blood mostly on the tissue paper after wiping, which she attributes to hemorrhoids. The patient has been postmenopausal for the last 2 years but states that when she did have her period, she had heavy periods and was told that she has uterine fibroids (up to five). She denies any abdominal pain, chest pain, shortness of breath, cough, fevers or chills. PAST MEDICAL HISTORY: Notable for uterine fibroids. PAST SURGICAL HISTORY: None. SOCIAL HISTORY: The patient has smoked up to a pack of cigarettes per day for many years. She denies alcohol use. She is a teacher. FAMILY HISTORY: Noncontributory. REVIEW OF SYSTEMS: Fourteen-point review of systems is notable for chest pain. MEDICATIONS AT HOME: None. PHYSICAL EXAMINATION: GENERAL: Well-developed female lying in bed, in no acute distress. VITAL SIGNS: Reveal temperature of 98.4, blood pressure 159/90, heart rate of 70. HEENT: Reveal sclerae to be white. Conjunctivae pale. NECK: Supple. CHEST: Reveal lungs to be clear. HEART: Reveals regular rate and rhythm. ABDOMEN: Soft, nontender. No mass. EXTREMITIES: Show no edema. LABORATORY DATA: Reveal hemoglobin of 6.7, white blood cell count of 6.4, reticulocyte count of 1.14. Chemistries reveal normal AST, ALT, and alk phos. IMPRESSION: A 57-year-old female with chest pain secondary to profound anemia. She admits occasional rectal bleeding which she attributes to hemorrhoids. She has never had a colonoscopy. She also has a history of uterine fibroids. RECOMMENDATIONS: 1. Transfuse packed red blood cells to hematocrit of 27%. 2. Check stool guaiacs. 3. I will schedule the patient for an upper endoscopy. 4. A CT scan of the abdomen and pelvis has been ordered. Luis Angel Gamboa MD [facility] # [id number]
--- NOTE | 2017-09-15 14:22 | CT ---
PROCEDURE: CT Chest, Abdomen and Pelvis with intravenous contrast HISTORY: anemia COMPARISON: None. TECHNIQUE: IV dose administered: 100 cc of Omni 350 Radiation dose: Total exam DLP = 304 mGy-cm. This CT exam was performed using one or more of the following dose reduction techniques: Automated exposure control, adjustment of the mA and/or kV according to patient size, and/or use of iterative reconstruction technique. FINDINGS: CT CHEST WITH CONTRAST: LUNGS: Clear. No nodule, mass or consolidation. MEDIASTINUM: Unremarkable. Normal caliber aorta and pulmonary arterial trunk. No aortic dissection. Normal size heart. LYMPH NODES: Unremarkable. PLEURA: Unremarkable. No pneumothorax. No pleural fluid. BONES: Unremarkable. OTHER FINDINGS: None. CT ABDOMEN AND PELVIS: LIVER: Unremarkable. No gross lesion or ductal dilatation. GALLBLADDER AND BILE DUCTS: Unremarkable. PANCREAS: Unremarkable. No gross lesion or ductal dilatation. SPLEEN: Unremarkable. ADRENALS: Unremarkable. No mass. KIDNEYS AND URETERS: Unremarkable. No hydronephrosis. No solid mass. VASCULATURE: Unremarkable. No aortic aneurysm. BOWEL: Unremarkable. No obstruction. No gross mural thickening. APPENDIX: Normal appendix. PERITONEUM: Unremarkable. No free fluid. No free air. LYMPH NODES: Unremarkable. No enlarged lymph nodes. BLADDER: Unremarkable. REPRODUCTIVE: Multiple lobulated fibroids. BONES: There is severe disc degeneration at L4-5. There is a moderate disc bulge at L5-S1 OTHER FINDINGS: None. IMPRESSION: Negative study
--- NOTE | 2017-09-15 16:39 | CP.PCM.CON ---
History of Present Illness - History of Present Illness History of Present Illness: 57 year old female with no past medical history, presenting with chest pain, found to be anemic. The patient reports to chest discomfort which did not improve and concerned her and came to the ER. In the ER she was found to have a hgb 6.7. She notes to blood streaked stool which she attributes to hemorrhoids off and on. She used to have heavy periods but has not had a period in about 2 years. She does admit to progressive fatigue and feeling cold all the time. Past medical history: Uterine fibroid Past surgical history: Denies Family history: Denies hematologic and oncologic problems Social history: 1ppd x 40 years, denies alcohol, and illicit drug use. Allergies: NKA Review of systems: All remaining review of systems including HEENT, cardiovascular, respiratory, gastrointestinal, genitourinary, musculoskeletal, dermatologic, neurologic, and psychiatric are negative unless mentioned in the HPI. Past Patient History - Infectious Disease Hx of Infectious Diseases: None - Past Medical History & Family History Past Medical History?: Yes Past Family History: Reviewed and not pertinent - Past Social History Smoking Status: Light Smoker < 10 Cigarettes Daily - CARDIAC Hx Cardiac Disorders: No - PULMONARY Hx Respiratory Disorders: No - NEUROLOGICAL Hx Neurological Disorder: No - HEENT Hx HEENT Problems: No - RENAL Hx Chronic Kidney Disease: No - ENDOCRINE/METABOLIC Hx Endocrine Disorders: No - HEMATOLOGICAL/ONCOLOGICAL Hx Blood Disorders: No - INTEGUMENTARY Hx Dermatological Problems: No - MUSCULOSKELETAL/RHEUMATOLOGICAL Hx Musculoskeletal Disorders: Yes Hx Falls: No Hx Herniated Disk: Yes - GASTROINTESTINAL Hx Gastrointestinal Disorders: No - GENITOURINARY/GYNECOLOGICAL Hx Genitourinary Disorders: No - PSYCHIATRIC Hx Psychophysiologic Disorder: No Hx Substance Use: No - SURGICAL HISTORY Hx Surgeries: Yes Other/Comment: tubal ligation - ANESTHESIA Hx Anesthesia: No Meds Allergies/Adverse Reactions: Allergies Allergy/AdvReac Type Severity Reaction Status Date / Time No Known Allergies Allergy Verified 09/14/17 17:13 - Medications Medications: Current Medications Arformoterol Tartrate (Brovana) 15 mcg IH [id number] [facility] Last Admin: 09/15/17 11:30 Dose: 15 mcg Chlordiazepoxide (Librium) 25 mg PO Q8 PRN; Protocol PRN Reason: Symptoms of alcohol withdrawl Folic Acid (Folic Acid) 1 mg PO DAILY [facility] Last Admin: 09/15/17 12:11 Dose: 1 mg Dextrose/Sodium Chloride (Dextrose 5%/0.45% Ns 1000 Ml) 1,000 mls @ 60 mls/hr IV .[id number] [facility] Last Admin: 09/15/17 01:59 Dose: 60 mls/hr Iron Sucrose 200 mg/ Sodium (Chloride) 110 mls @ 110 mls/hr IVPB DAILY [facility] Stop: 09/19/17 10:59 Levalbuterol HCl (Xopenex) 0.63 mg IH [id number] PRN PRN Reason: SOB Losartan Potassium (Cozaar) 50 mg PO DAILY [facility] Last Admin: 09/15/17 09:10 Dose: 50 mg Metoprolol Tartrate (Lopressor) 25 mg PO BID [facility] Last Admin: 09/15/17 09:09 Dose: 25 mg Nicotine (Nicoderm Cq) 1 patch TD DAILY [facility] Last Admin: 09/15/17 09:10 Dose: 1 patch Pantoprazole Sodium (Protonix Inj) 40 mg IVP Q12 [facility] Last Admin: 09/15/17 09:09 Dose: 40 mg Potassium Chloride (K-Dur 20 Meq Er Tab) 20 meq PO BRK [facility] Stop: 09/19/17 08:01 Last Admin: 09/15/17 09:09 Dose: 20 meq Thiamine HCl (Vitamin B1 Inj) 100 mg IV DAILY [facility] Physical Exam - Head Exam Head Exam: ATRAUMATIC - Eye Exam Eye Exam: Normal appearance - ENT Exam ENT Exam: Mucous Membranes Dry - Respiratory Exam Respiratory Exam: NORMAL BREATHING PATTERN - Cardiovascular Exam Cardiovascular Exam: +S1, +S2 - GI/Abdominal Exam GI & Abdominal Exam: Normal Bowel Sounds - Extremities Exam Extremities exam: Positive for: normal inspection - Neurological Exam Neurological exam: Oriented x3 - Psychiatric Exam Psychiatric exam: Normal Affect, Normal Mood - Skin Skin Exam: Warm Results - Vital Signs Recent Vital Signs: Last Vital Signs Temp 99.1 F 09/15/17 15:54 Pulse 75 09/15/17 15:54 Resp 18 09/15/17 15:54 BP 159/101 H 09/15/17 15:54 Pulse Ox 100 09/15/17 06:00 - Labs Result Diagrams: 09/15/17 08:00 09/15/17 03:35 Labs: Laboratory Results - last 24 hr 09/14/17 09/14/17 09/14/17 23:58 23:58 23:58 WBC RBC Hgb Hct MCV MCH MCHC RDW Plt Count Manual Plt Count PT INR APTT Sodium Potassium Chloride Carbon Dioxide Anion Gap BUN Creatinine Est GFR ( Amer) Est GFR (Non-Af Amer) Random Glucose Calcium Phosphorus 4.0 Magnesium 2.2 Iron 19 L TIBC 462 % Saturation 4 L Transferrin 393.37 H Ferritin 5.5 Total Bilirubin Direct Bilirubin AST ALT Alkaline Phosphatase Lactate Dehydrogenase 389 Total Creatine Kinase 60 Troponin I < 0.01 Total Protein Albumin Globulin Albumin/Globulin Ratio Triglycerides Cholesterol LDL Cholesterol Direct HDL Cholesterol Vitamin B12 355 25-OH Vitamin D Total Folate 6.3 Free T4 Thyroxine (T4) TSH 3rd Generation Hepatitis A IgM Ab Hep Bs Antigen Hep B Core IgM Ab Hepatitis C Antibody Blood Type Blood Type Confirm Antibody Screen Crossmatch BBK History Checked 09/14/17 09/14/17 09/14/17 23:58 23:58 23:58 WBC RBC Hgb Hct MCV MCH MCHC RDW Plt Count Manual Plt Count PT INR APTT Sodium Potassium Chloride Carbon Dioxide Anion Gap BUN Creatinine Est GFR ( Amer) Est GFR (Non-Af Amer) Random Glucose Calcium Phosphorus Magnesium Iron TIBC % Saturation Transferrin Ferritin Total Bilirubin Direct Bilirubin AST ALT Alkaline Phosphatase Lactate Dehydrogenase Total Creatine Kinase Troponin I Total Protein Albumin Globulin Albumin/Globulin Ratio Triglycerides Cholesterol LDL Cholesterol Direct HDL Cholesterol Vitamin B12 25-OH Vitamin D Total < 12.8 L Folate Free T4 1.12 Thyroxine (T4) 6.9 TSH 3rd Generation 3.73 Hepatitis A IgM Ab Hep Bs Antigen Hep B Core IgM Ab Hepatitis C Antibody Blood Type O POSITIVE Blood Type Confirm Antibody Screen Negative Crossmatch See Detail BBK History Checked No verified bt 09/15/17 09/15/17 09/15/17 01:35 01:35 03:35 WBC RBC Hgb Hct MCV MCH MCHC RDW Plt Count Manual Plt Count PT 11.9 INR 1.04 APTT 25.4 Sodium 140 Potassium 3.6 Chloride 108 H Carbon Dioxide 24 Anion Gap 11 BUN 13 Creatinine 0.7 Est GFR ( Amer) > 60 Est GFR (Non-Af Amer) > 60 Random Glucose 117 H Calcium 9.3 Phosphorus Magnesium 2.2 Iron TIBC % Saturation Transferrin Ferritin Total Bilirubin 0.2 Direct Bilirubin 0.2 AST 26 ALT 23 Alkaline Phosphatase 76 Lactate Dehydrogenase 366 Total Creatine Kinase 61 Troponin I < 0.01 Total Protein 7.2 Albumin 3.8 Globulin 3.5 Albumin/Globulin Ratio 1.1 Triglycerides 141 Cholesterol 149 LDL Cholesterol Direct 101 HDL Cholesterol 32 Vitamin B12 25-OH Vitamin D Total Folate Free T4 Thyroxine (T4) TSH 3rd Generation Hepatitis A IgM Ab Hep Bs Antigen Hep B Core IgM Ab Hepatitis C Antibody Blood Type Blood Type Confirm O POSITIVE Antibody Screen Crossmatch BBK History Checked 09/15/17 09/15/17 09/15/17 08:00 08:45 08:45 WBC 5.4 RBC 4.11 Hgb 7.8 L Hct 28.6 L MCV 69.6 L D MCH 19.0 L MCHC 27.3 L RDW 22.3 H Plt Count 97 L Manual Plt Count PT 12.4 INR 1.08 APTT Sodium Potassium Chloride Carbon Dioxide Anion Gap BUN Creatinine Est GFR ( Amer) Est GFR (Non-Af Amer) Random Glucose Calcium Phosphorus Magnesium Iron TIBC % Saturation Transferrin Ferritin Total Bilirubin Direct Bilirubin AST ALT Alkaline Phosphatase Lactate Dehydrogenase 381 Total Creatine Kinase 79 Troponin I < 0.01 Total Protein Albumin Globulin Albumin/Globulin Ratio Triglycerides Cholesterol LDL Cholesterol Direct HDL Cholesterol Vitamin B12 25-OH Vitamin D Total Folate Free T4 Thyroxine (T4) TSH 3rd Generation Hepatitis A IgM Ab Hep Bs Antigen Hep B Core IgM Ab Hepatitis C Antibody Blood Type Blood Type Confirm Antibody Screen Crossmatch BBK History Checked 09/15/17 09/15/17 08:45 10:30 WBC RBC Hgb Hct MCV MCH MCHC RDW Plt Count Manual Plt Count 120 PT INR APTT Sodium Potassium Chloride Carbon Dioxide Anion Gap BUN Creatinine Est GFR ( Amer) Est GFR (Non-Af Amer) Random Glucose Calcium Phosphorus Magnesium Iron TIBC % Saturation Transferrin Ferritin Total Bilirubin Direct Bilirubin AST ALT Alkaline Phosphatase Lactate Dehydrogenase Total Creatine Kinase Troponin I Total Protein Albumin Globulin Albumin/Globulin Ratio Triglycerides Cholesterol LDL Cholesterol Direct HDL Cholesterol Vitamin B12 25-OH Vitamin D Total Folate Free T4 Thyroxine (T4) TSH 3rd Generation Hepatitis A IgM Ab Negative Hep Bs Antigen Negative Hep B Core IgM Ab Negative Hepatitis C Antibody Negative Blood Type Blood Type Confirm Antibody Screen Crossmatch BBK History Checked Assessment & Plan (1) Anemia Assessment and Plan: work up consistent with iron deficiency anemia agree with PRBC transfusion support GI w/u in progress IV iron Status: Acute (2) Thrombocytopenia Assessment and Plan: mild cont. to monitor as iron stores replenished ?low grade ITP Status: Acute (3) Tobacco abuse Assessment and Plan: smoking cessation discussed at length Thank you for this interesting consult. Status: Acute
--- NOTE | 2017-09-15 17:21 | CON ---
DATE: 09/15/2017 HISTORY OF PRESENT ILLNESS: The patient is a 57-year-old woman who presents with spasm in her chest. No pressure-like sensations. Symptoms she describes are relieved with movement of her left shoulder. PAST MEDICAL HISTORY: Notable for long history of smoking. She does suffer from hypertension. Negative diabetes mellitus. No previous cardiac history is noted. SOCIAL HISTORY: The patient is an active smoker, one pack a day. REVIEW OF SYSTEMS: A 14-point review of systems is reviewed in detail. No angina. Negative dyspnea. Negative edema in the lower extremities. No syncope. PHYSICAL EXAMINATION: VITAL SIGNS: Blood pressure is 159/90 with a heart rate in the 70s. NECK: Negative JVD. LUNGS: Without rales. HEART: Reveals S1, S2. EXTREMITIES: Without edema. DIAGNOSTICS: EKG shows normal sinus rhythm with no acute changes. Hemoglobin is 6.7. Troponins negative x4. IMPRESSION: 1. Atypical chest pain. 2. No evidence for acute coronary syndrome. 3. Severe anemia. 4. Probable coronary artery disease. 5. Rule out chronic obstructive pulmonary disease. Given these findings, I have discussed with the patient about the need to stop smoking. She is agreeable for the nicotine patch. The patient is scheduled for transfusion. Once the etiology of her anemia is defined and the patient's hemoglobin remained stable, she should have a stress test done given her high probability for CAD. This can be done as an outpatient. Currently, we can discontinue telemetry. Kj Mcneill MD
[2017-09-15] MEDS: Thiamine 100 mg/ml Inj IV SCH (19:16)
[2017-09-16 05:09] LABS: SICKLE CELL SCREEN Negative (Negative)
[2017-09-16 06:54] LABS: BASO # 0.06 K/mm3 (0.0-2.0); BASO % 0.8 % (0.0-3.0); EOS # 0.7 (0.0-0.7); GRAN # 4.69 (1.4-6.5); GRAN % 64.9 % (50.0-68.0); HEMOGLOBIN 10.5 g/dL (12.0-16.0); LYMPH # 1.2 (1.2-3.4); MEAN CELL VOLUME 72.1 fl (80.0-105.0); MEAN CORPUSCULAR HEMOGLOBIN 21.2 pg (25.0-35.0); MEAN CORPUSCULAR HGB CONC 29.4 g/dl (31.0-37.0); MONO # 0.5 (0.1-0.6); MONO % 7.3 % (1.0-6.0); PLATELET COUNT 94 10^3/uL (120.0-450.0); RBC 4.95 10^6/uL (3.5-6.1); RED CELL DISTRIBUTION WIDTH 22.3 % (11.5-14.5); WHITE BLOOD COUNT 7.2 10^3/ul (4.5-11.0)
[2017-09-16] MEDS: Arformoterol 15 mcg/2 ml Inh Sol IH SCH (07:27)
[2017-09-16 07:41] LABS: ALB/GLOB RATIO 1.1 (1.1-1.8); ALBUMIN 4.1 g/dL (3.0-4.8); ALT/SGPT 22 U/L (7-56); AST/SGOT 24 U/L (14-36); BILIRUBIN,DIRECT 0.2 mg/dL (0.0-0.4); BLOOD UREA NITROGEN 7 mg/dL (7-21); CALCIUM 9.7 mg/dL (8.4-10.5); GFR AFRICAN-AMERICAN > 60; GFR NON-AFRICAN AMERICAN > 60
--- NOTE | 2017-09-16 07:48 | CP.PCM.PN ---
Subjective - Date & Time of Evaluation Date of Evaluation: 09/16/17 Time of Evaluation: 07:45 - Subjective Subjective: Medicine Progress Note for Dr. Thurston Pt seen and examined at bedside. No acute overnight events. Pt states that she feels better after transfusion and iron infusion. Pt states she has never had a colonoscopy. Pt denied CP, SOB, n/v/d, abdominal pain, fever, chills, BALDERAS, or dizziness. Objective - Vital Signs/Intake and Output Vital Signs (last 24 hours): Temp Pulse Resp BP Pulse Ox 98.2 F 68 20 159/85 H 97 09/16/17 05:21 09/16/17 05:21 09/16/17 05:21 09/16/17 05:21 09/16/17 05:21 Intake and Output: 09/16/17 09/16/17 06:59 18:59 Intake Total 960 Balance 960 - Medications Medications: Current Medications Arformoterol Tartrate (Brovana) 15 mcg IH [id number] [facility] Last Admin: 09/16/17 07:27 Dose: 15 mcg Chlordiazepoxide (Librium) 25 mg PO Q8 PRN; Protocol PRN Reason: Symptoms of alcohol withdrawl Folic Acid (Folic Acid) 1 mg PO DAILY [facility] Last Admin: 09/15/17 12:11 Dose: 1 mg Dextrose/Sodium Chloride (Dextrose 5%/0.45% Ns 1000 Ml) 1,000 mls @ 60 mls/hr IV .[id number] [facility] Last Admin: 09/15/17 22:28 Dose: 60 mls/hr Iron Sucrose 200 mg/ Sodium (Chloride) 110 mls @ 110 mls/hr IVPB DAILY [facility] Stop: 09/19/17 10:59 Last Admin: 09/15/17 17:08 Dose: 110 mls/hr Levalbuterol HCl (Xopenex) 0.63 mg IH [id number] PRN PRN Reason: SOB Last Admin: 09/16/17 07:27 Dose: 0.63 mg Losartan Potassium (Cozaar) 50 mg PO DAILY [facility] Last Admin: 09/15/17 09:10 Dose: 50 mg Metoprolol Tartrate (Lopressor) 25 mg PO BID [facility] Last Admin: 09/15/17 17:08 Dose: 25 mg Nicotine (Nicoderm Cq) 1 patch TD DAILY [facility] Last Admin: 09/15/17 09:10 Dose: 1 patch Pantoprazole Sodium (Protonix Inj) 40 mg IVP Q12 [facility] Last Admin: 09/15/17 22:23 Dose: 40 mg Potassium Chloride (K-Dur 20 Meq Er Tab) 20 meq PO BRK [facility] Stop: 09/19/17 08:01 Last Admin: 09/15/17 09:09 Dose: 20 meq Thiamine HCl (Vitamin B1 Inj) 100 mg IV DAILY [facility] Last Admin: 09/15/17 19:16 Dose: 100 mg - Labs Labs: 09/15/17 08:00 09/16/17 06:30 PT 12.4 SECONDS (9.4-12.5) 09/15/17 08:45 INR 1.08 (0.93-1.08) 09/15/17 08:45 APTT 25.4 Seconds (25.1-36.5) 09/15/17 01:35 - Constitutional Appears: No Acute Distress - Head Exam Head Exam: NORMAL INSPECTION - Eye Exam Eye Exam: Normal appearance - ENT Exam ENT Exam: Normal Exam - Neck Exam Neck Exam: Normal Inspection - Respiratory Exam Respiratory Exam: Clear to Ausculation Bilateral. absent: Rales, Rhonchi, Wheezes - Cardiovascular Exam Cardiovascular Exam: RRR, +S1, +S2. absent: Gallop, Rubs, Murmur - GI/Abdominal Exam GI & Abdominal Exam: Soft. absent: Distended, Guarding, Tenderness, Rebound - Extremities Exam Extremities Exam: Normal Inspection - Neurological Exam Neurological Exam: Alert, Awake, Oriented x3 - Psychiatric Exam Psychiatric exam: Normal Affect, Normal Mood - Skin Skin Exam: Dry, Intact, Normal Color, Warm Assessment and Plan - Assessment and Plan (Free Text) Assessment: 57yo postmenopausal AAF with no significant PMH who presented for chest tightness, found to have anemia w/ Hgb 6.9. Pt being evaluated and treated for anemia likely 2/2 iron-deficiency. Plan: 1. Iron Deficiency Anemia - Transfused 2u pRBC, appropriate response after 1 unit, follow up CBC - Anemia work up consistent with Iron deficiency (low Fe and sat, high TIBC) - Troponin trend negative, ACS ruled out - Chest, abdomen, pelvis CT unremarkable - CXR unremarkable - GI consulted Plan for endoscopy - Cardio consulted Outpatient stress test once anemia stabilizes - Heme consulted - F/u stool occult blood test - F/u pelvic and transvaginal US - Liquid diet - D5W @ 60 ordered - IV iron 2. HTN - Lopressor and Cozaar ordered 3. Tobacco Abuse - nicotine patch ordered - Counseled patient on risks of tobacco use and advised cessation GI/DVT PPx - Protonix - SCDs Patient was seen and examined, and discussed with attending Dr. Bertrand Caro, PGY 1
[2017-09-16 08:11] LABS: MCH 18.2 pg (27.0-33.0); MCV 62.5 fL (80.0-100.0)
[2017-09-16] MEDS ORDERED: Propofol 10 mg/ml Inj (20 ML) ONE (08:15)
[2017-09-16] MEDS ORDERED: Sodium Chloride 0.9% 1,000 ML IV SCH (08:30)
--- NOTE | 2017-09-16 08:35 | US ---
EXAM: US Pelvis Complete, Transabdominal US Pelvis, Transvaginal CLINICAL HISTORY: 57 years old, female; Signs and symptoms; Other: Menorrhagia , anemia; Patient HX: Patient had CT scan abdomen/pelvis today, unable to print report for comparison TECHNIQUE: Real-time transabdominal and transvaginal pelvic ultrasound (complete) with image documentation. Transvaginal imaging was used for better evaluation of the endometrium and adnexa. COMPARISON: CT - CHEST,ABD,PEL W/IV PO CONTRAST 2017-09-15 13:41 FINDINGS: Uterus/cervix: The endometrial thickness is not well evaluated, likely due to distortion from the uterine fibroids. The uterus measures approximately 6.8 x 4.3 x 6.9 cm. Heterogeneous and lobular myometrium, likely due to fibroids. Multiple uterine fibroids, the largest measuring 3.5 cm in largest diameter in the lower uterine segment posteriorly, likely subserosal. There is some coarse calcification in the uterus, possibly due to degenerating fibroids. Right ovary: Right ovary measures 2.3 x 1.6 x 2.0 cm. Normal blood flow. Left ovary: Left ovary is not seen due to bowel gas. Free fluid: No free or complex fluid. Bladder: Post void bladder demonstrates residual volume, incompletely imaged. IMPRESSION: Fibroid uterus as above. The endometrial thickness is not well evaluated, likely due to distortion from the uterine fibroids. Pelvic MRI or hysterosonogram may be helpful in an attempt to evaluate the endometrium.
[2017-09-16 08:37] LABS: PLATELET COUNT MANUAL 120 K/mm3 (120-450)
[2017-09-16 08:58] VITALS: O2SAT 98
[2017-09-16] MEDS: Potassium Chloride 20 mEq ER Tab PO SCH (10:25)
[2017-09-16] MEDS: Dextrose 5%/0.45% NS 1,000 ML IV SCH (10:27)
[2017-09-16] MEDS: Thiamine 100 mg/ml Inj IV SCH (10:29)
--- NOTE | 2017-09-16 10:46 | US ---
See pelvic ultrasound report.
[2017-09-16 12:10] VITALS: BP 146/91; PULSE 63; RESP 19; TEMP 97.8
--- NOTE | 2017-09-16 15:36 | PN ---
DATE: CARDIOLOGY FOLLOWUP Covering for Dr. Kj Mcneill. SUBJECTIVE: The patient denies any chest pain. She underwent upper endoscopy and the findings are consistent with large hiatus hernia, erythema in the antrum, which was biopsied, seen nonbleeding angiodysplastic lesions in the jejunum. PHYSICAL EXAMINATION: VITAL SIGNS: Blood pressure 156/82, heart rate 71, temperature 97.4, respirations 16. HEENT: Pale conjunctivae. CHEST: Clear. HEART: S1 and S2 regular. EXTREMITIES: No edema. LABORATORY DATA: Hemoglobin and hematocrit are 10.5 and 35.7. White count and platelet counts today are within normal limits. SMA-7 is within normal limits except for chloride of 109. EKG on admission revealed sinus rhythm with premature atrial complexes. ASSESSMENT: 1. Chest pain, myocardial infarction rule out. 2. Severe anemia, most likely related to upper gastrointestinal bleeding. 3. Hypertension. RECOMMENDATIONS: Continue current Cozaar 100 mg daily, folic acid 1 mg daily, K-Dur 20 mEq once a day, Librium 25 mg q.8 hours, Lopressor 25 mg twice a day, thiamine 100 mg once a day. I will follow echocardiograph study that was performed today. Paco Wilkins MD
--- NOTE | 2017-09-17 07:09 | DS ---
FINAL PROGRESS NOTE AND DISCHARGE SUMMARY HISTORY OF PRESENT ILLNESS: Patient is seen in recovery room after endoscopy. Overnight nurse's notes were reviewed. Patient was found to be alert, awake, oriented x3. Patient has intermittent headache, which resolved with Tylenol. Patient is seen lying in the stretcher. Patient is awake, responsive. Patient denies any bleeding. Patient denies any chest pain. Denies any nausea, vomiting, diarrhea or constipation. PHYSICAL EXAMINATION: VITAL SIGNS: Patient's vital signs were noted. T-max 97.4; pulse 76, 82, 69, 74, 68. Telemetry shows normal sinus rhythm. Blood pressure ranging 159/104, 140/90, 159/85, 152/90, 140/85, 154/82; respirations 18; O2 sat 98% to 100%. HEENT: Head examination normocephalic, atraumatic. HEENT examination shows pinkish conjunctivae. Anicteric sclerae. No oropharyngeal lesion. No neck rigidity. CHEST: Kyphosis. LUNGS: Shows no rales, crackles or wheezing. CARDIOVASCULAR: S1, S2, regular rhythm. ABDOMEN: Soft. Positive bowel sounds. GENITALIA: Female. RECTAL: Examination is deferred. EXTREMITIES: Shows no pitting edema, no calf tenderness, no Elmo's signs. MUSCULOSKELETAL: Shows a body mass index of 20. NEUROLOGIC: Patient is alert, awake, oriented x3. Cranial nerves II through XII limited, but intact. Gait examination not tested. DIAGNOSTICS: 09/16, WBC , hemoglobin/hematocrit 10.5 and 35.7, MCV 72, platelet 120,000 Sickle cell screen is negative. Retic count is normal. Sodium 142, potassium 3.6, chloride 109, CO2 24, anion gap 12, BUN 7, creatinine 0.7, GFR greater than 60, glucose 102, calcium 9.7, magnesium 2.2. LFTs are normal. All troponin three sets are negative. Vitamin D 25-hydroxy is 12.8. Vitamin B12 is 355. Transferrin is 393, ferritin is 5.0. Iron is 19, iron saturation is 4. Patient underwent endoscopy. IMPRESSION AND PLAN: 1. Status post esophagogastroduodenoscopy. 2. Widely patent acquired Schatzki's ring at the gastroesophageal junction, 35 cm. 3. Large hiatal hernia. 4. Gastric antral erythematous mucosa. 5. 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 6. Severe symptomatic microcytic anemia. 7. Hypertension. 8. Relative hypokalemia. 9. Iron deficiency microcytic anemia with decreased iron, decreased iron saturation, decreased ferritin. 10. Hypovitaminosis D. 11. Status post packed red blood cell transfusion x3, O+. 12. Multiple uterine fibroids, subserosal with course calcification secondary to degenerative fibroids. 13. Multiple lobulated fibroids. 14. Severe L4-L5 disk degeneration and moderate disk bulge at L5-S1. 15. Multiple heterogeneous fibroid uterus with nonvisualized left ovary. 16. Relative thrombocytopenia. 17. Nicotine and alcohol dependence and addiction. 18. Atypical chest pain. 19. History of rectal bleeding secondary to hemorrhoid. Plan at this time, patient has been cleared by Cardiology and Gastroenterology. Patient will be discharged home after echo is completed. Patient's discharge followup with Dr. Thurston, Dr. Mcneill from Cardiology, Dr. Gamboa for Gastroenterology and Gynecology followup within 1 week. Patient is advised to schedule outpatient stress test with Dr. Kj Mcneill and elective colonoscopy in near future with Dr. Gamboa. Patient's discharge medications as per new script. Patient was counseled about cessation of smoking and alcohol. DISCHARGE MEDICATIONS: The patient's final discharge medications are as follows. Patient will be discharged on Brovana 15 mcg nebulizer q. 12, Drisdol 50,000 weekly, folic acid 1 mg daily, Cozaar 100 mg daily, Lopressor 25 mg twice a day, nicotine patch 14 mg daily, Protonix 40 mg twice a day, and thiamine 100 mg p.o. daily. During this hospitalization, patient was extensively explained about the details of her medical condition, diagnosis, treatment plan, management plan all discussed and explained to the patient at length and all questions concerned answered, which she acknowledged understood. Again, patient was counseled strictly about cessation of smoking and alcohol, which she acknowledged and understood. Time spent in the entire discharge, more than 45 minutes. Dictated and electronically signed, not read. José Miguel Thurston MD
--- NOTE | 2017-09-17 09:24 | CARD ---
APPROVED REPORT EXAM: Two-dimensional and M-mode echocardiogram with Doppler and color Doppler. Other Information Quality : AverageRhythm : INDICATION CVA/TIA 2D DIMENSIONS Left Atrium (2D)3.0 (1.6-4.0cm)IVSd1.2 (0.7-1.1cm) LVDd4.4 (3.9-5.9cm)PWd1.0 (0.7-1.1cm) LVDs3.2 (2.5-4.0cm)FS (%) 26.4 % LVEF (%)52.0 (>50%) M-Mode DIMENSIONS Aortic Root2.50 (2.2-3.7cm)Aortic Cusp Exc.1.60 (1.5-2.0cm) Aortic Valve AoV Peak Wkgbgvbt149.0cm/s Mitral Valve MV E Ejnnbcnt67.5cm/sMV A Ylervyfx38.7cm/sE/A ratio0.8 TDI E/Lateral E'0.0E/Medial E'0.0 Tricuspid Valve TR Peak [id number]/[id number] [id number] Peak Gr.9mmHg [id number] LEFT VENTRICLE The left ventricle is normal size. There is normal left ventricular wall thickness. The left ventricular function is normal. The left ventricular ejection fraction is within the normal range. There is normal LV segmental wall motion. RIGHT VENTRICLE The right ventricle is normal size. ATRIA The left atrium size is normal. The right atrium size is normal. The interatrial septum is intact with no evidence for an atrial septal defect. AORTIC VALVE The aortic valve is normal in structure. MITRAL VALVE The mitral valve is normal in structure. Mitral regurgitation is mild. TRICUSPID VALVE The tricuspid valve is normal in structure. There is mild tricuspid regurgitation. PULMONIC VALVE The pulmonary valve is normal in structure. GREAT VESSELS The aortic root is normal in size. PERICARDIAL EFFUSION There is no pericardial effusion. <Conclusion> The left ventricle is normal size. There is normal left ventricular wall thickness. The left ventricular ejection fraction is within the normal range. Mitral regurgitation is mild. There is mild tricuspid regurgitation.
--- NOTE | 2017-09-17 10:15 | CARD ---
APPROVED REPORT EKG Measurement Heart [id number] CT 142P-8 [id number] <Conclusion> Sinus rhythm with one premature ventricular complex LVH by voltage Prolonged QT No change
[2017-09-17 11:07] LABS: HEMOGLOBIN A 97.3 Percent (>96.0); HEMOGLOBIN A2 1.7 Percent (1.8-3.5)
== END 2017-09-16 15:17 | disposition home or self-care (01) | DRG 812 ==
LOC: ED 17:01 → ERH 21:54 → 2RNO 09-15 00:57
PROVIDERS: ADMIT Internal Medicine; ATTEND Internal Medicine
PROC: 30233N1 Transfusion of Nonautologous Red Blood Cells into Peripheral Vein, Percutaneous Approach (ICD-10-PCS; 2017-09-15)
PROC: 0DB68ZX Excision of Stomach, Via Natural or Artificial Opening Endoscopic, Diagnostic (ICD-10-PCS; principal; 2017-09-16 08:00)
DX: D50.9 Iron deficiency anemia, unspecified (principal); D69.6 Thrombocytopenia, unspecified; I11.9 Hypertensive heart disease without heart failure; K31.819 Angiodysplasia of stomach and duodenum without bleeding; K22.2 Esophageal obstruction; K44.9 Diaphragmatic hernia without obstruction or gangrene; K29.50 Unspecified chronic gastritis without bleeding; E87.6 Hypokalemia; D25.2 Subserosal leiomyoma of uterus; M51.36 Other intervertebral disc degeneration, lumbar region; E55.9 Vitamin D deficiency, unspecified; E78.00 Pure hypercholesterolemia, unspecified; K64.9 Unspecified hemorrhoids; F17.210 Nicotine dependence, cigarettes, uncomplicated

== ENCOUNTER 2017-11-09 07:51 | Day surgery (SDC) | payer BC ==
[2017-11-08 15:07] VITALS: BMI 20.7
[2017-11-09 08:18] VITALS: RESP 16; O2SAT 100
[2017-11-09] MEDS ORDERED: Propofol 10 mg/ml Inj (20 ML) ONE (08:32)
[2017-11-09] MEDS ORDERED: Sodium Chloride 0.9% 1,000 ML IV SCH (09:45)
[2017-11-09 10:51] VITALS: BP 140/80; PULSE 64; TEMP 97.6
== END 2017-11-09 10:39 | disposition home or self-care (01) ==
LOC: ENDO 07:51
PROVIDERS: ATTEND Specialist
DX: K63.5 Polyp of colon (principal); D50.9 Iron deficiency anemia, unspecified; K64.8 Other hemorrhoids; K57.30 Diverticulosis of large intestine without perforation or abscess without bleeding; K62.1 Rectal polyp
CPT/HCPCS: 45380; 88305; J2704; J7040 ×2